=== PATIENT | male | born 1990 | race Two or more races ===

== ENCOUNTER 2022-12-23 09:23 | Inpatient (IN) | payer MEDICAID, OTHER ==
[~2022-12-23] VITALS: Ht 175.3 cm; Wt 73.7 kg
[2022-12-23 09:35] VITALS: TEMP 99.2; O2SAT 98
[2022-12-23 09:51] LABS: Urine WBC None Seen /hpf (0 - 3)
[2022-12-23] MEDS ORDERED: ONDANSETRON HCL 4 MG/2 ML VIAL IV ONE ×2 (10:00→11:30)
[2022-12-23 10:20] LABS: Urine Bacteria NONE SEEN /hpf (None Seen); Urine Blood Negative /uL (Negative); Urine Clarity Clear (Clear); Urine Color Colorless (Yellow); Urine Protein, UAD Negative (Negative); Urine Specific Gravity 1.007 (1.001-1.035); Urine Urobilinogen Normal (Negative); Urine pH 6.5 (5.0-8.0)
[2022-12-23 10:27] LABS: Basophils # (auto) 0 10 ^3/uL (0-0.2); Basophils % (auto) 0.3 % (0.0-2.0); Eosinophils # (auto) 0.1 10 ^3/uL (0-0.8); Eosinophils % (auto) 2.9 % (0.0-7.0); Lymphocytes # (auto) 1.8 10 ^3/uL (0.4-5.4); Lymphocytes % (auto) 46.5 % (10.0-50.0); Mean Corpuscular Hemoglobin 30.5 pg (28.0-32.0); Mean Corpuscular Hgb Conc. 34.1 g/dL (32.0-36.0); Mean Corpuscular Volume 89.2 fL (80.0-100.0); Monocytes # (auto) 0.5 10 ^3/uL (0-1.3); Monocytes % (auto) 12.2 % (0.0-12.0); Neutrophils # (auto) 1.4 10 ^3/uL (1.6-8.6); Neutrophils % (auto) 38.1 % (37.0-80.0); Nucleated Red Blood Cells % 0.1 %; Red Blood Cells 4.26 10^6/uL (4.5-5.90); Red Cell Distribution Width 18.5 % (11.8-14.3); White Blood Cell 3.8 10^3/uL (4.4-10.8)
[2022-12-23 10:36] LABS: Albumin 3.9 g/dL (3.4-5.0); Potassium 4.1 mmol/L (3.5-5.1)
[2022-12-23 10:40] LABS: BUN/Creatinine Ratio 12.7 (10.0-20.0); Bilirubin, Total 0.3 mg/dL (0.2-1.0); Total Protein 7.8 g/dL (6.4-8.2)
[2022-12-23] MEDS ORDERED: SODIUM CHLORIDE 0.9% 1,000 ML IV ONE (11:15)
[2022-12-23] MEDS ORDERED: HYDROmorphone HCL 2 MG/ML VL/or syr IV ONE (11:15)
[2022-12-23] MEDS ORDERED: MORPHINE SULFATE 4 MG/ML SYR/VIAL IV ONE (11:30)
[2022-12-23 11:42] LABS: INR 1.03 (0.9-1.15); Partial Thromboplastin Time 29.7 SEC (24.5-34.5); Prothrombin Time 10.8 sec (9.3-11.8)
[2022-12-23 12:00] VITALS: BP 140/88; PULSE 96; RESP 17
[2022-12-23] MEDS ORDERED: SODIUM CHLORIDE 0.9% 1,000 ML IV SCH (15:00)
[2022-12-23] MEDS ORDERED: HYDROcodone-ACET 5/325MG TAB PO PRN ×2 (15:30)
[2022-12-23] MEDS ORDERED: DOCUSATE SOD 100 MG CAP PO PRN (15:30)
[2022-12-23] MEDS ORDERED: ACETAMINOPHEN 500 MG TAB PO PRN (15:30)
[2022-12-23] MEDS ORDERED: ACET1CAP14 PO (15:48)
[2022-12-23] MEDS ORDERED: ATOR10TA PO (15:48)
[2022-12-23] MEDS ORDERED: BICT1TAB4 PO (15:48)
[2022-12-23] MEDS ORDERED: FER325T PO (15:48)
[2022-12-23] MEDS ORDERED: DIVA1TAB59 PO (15:48)
[2022-12-23] MEDS ORDERED: RISP0.2535 PO (15:48)
[2022-12-23] MEDS ORDERED: LEV100T PO (15:48)
[2022-12-23] MEDS ORDERED: ASCO500T11 PO (15:48)
[2022-12-23] MEDS ORDERED: APIX5TAB PO (15:48)
[2022-12-23] MEDS ORDERED: PANTOPRAZOLE 40 MG/10 ML VIAL INJ IV SCH (22:00)
== END 2022-12-23 15:59 | disposition left against medical advice (07) | DRG 253 ==
LOC: ER 09:23 → TELE 14:19
PROVIDERS: ADMIT Nurse Practitioner Family; ATTEND Nurse Practitioner Family
DX: K92.2 Gastrointestinal hemorrhage, unspecified (principal); D64.9 Anemia, unspecified; G40.909 Epilepsy, unspecified, not intractable, without status epilepticus; E03.9 Hypothyroidism, unspecified; R91.1 Solitary pulmonary nodule; Z53.29 Procedure and treatment not carried out because of patient's decision for other reasons; D72.819 Decreased white blood cell count, unspecified; N18.9 Chronic kidney disease, unspecified; N20.0 Calculus of kidney; Z86.718 Personal history of other venous thrombosis and embolism; Z88.6 Allergy status to analgesic agent; Z88.8 Allergy status to other drugs, medicaments and biological substances; Z91.199 Patient's noncompliance with other medical treatment and regimen due to unspecified reason; Z21 Asymptomatic human immunodeficiency virus [HIV] infection status
CPT/HCPCS: 36415; 74176; 80053; 81001; 85025; 85610; 85730; 86850; 86900; 86901; 96361; 96374; 96375; G0378; J2405